=== PATIENT | male | born 1945 | race American Indian/Alaskan Native ===

== ENCOUNTER 2021-08-27 20:51 | Inpatient (IN) | payer MEDICARE ==
[2021-08-27] MEDS ORDERED: SODIUM CHLORIDE 0.9% 1000 ML 1,000 ML IV ONE (22:43)
--- NOTE | 2021-08-27 23:07 | XRay Report ---
CHEST 1 VIEW INDICATION / CLINICAL INFORMATION: Dyspnea. COMPARISON: None available. FINDINGS: SUPPORT DEVICES: None. HEART / MEDIASTINUM: Heart size is within normal limits. Mild ectasia of the thoracic aorta is demons trated. LUNGS / PLEURA: No significant pulmonary abnormality. BONES: Previous repair of the right humeral neck demonstrated. Osseous structures demonstrate no acut e findings. ADDITIONAL FINDINGS: No significant additional findings. IMPRESSION: 1. No active cardiopulmonary disease. Signer Name: Sukhjinder Hong II, MD Signed: 08/27/2021 11:02 PM Workstation Name: [id number]
[2021-08-27 23:38] LABS: Basophils % (Auto) 0.6 % (0.0-1.8); Eosinophils # (Auto) 0.1 K/mm3 (0.0-0.4); Eosinophils % (Auto) 1.6 % (0.0-4.3); Hematocrit 37.2 % (35.5-45.6); Hemoglobin 12.2 gm/dl (11.8-15.2); Lymphocytes # (Auto) 1.8 K/mm3 (1.2-5.4); Lymphocytes % (Auto) 35.3 % (13.4-35.0); Mean Corpuscular HGB Conc 33 % (32-34); Mean Corpuscular Volume 87 fl (84-94); Monocytes # (Auto) 0.6 K/mm3 (0.0-0.8); Monocytes % (Auto) 12.2 % (0.0-7.3); Platelet Count 170 K/mm3 (140-440); Red Blood Count 4.27 M/mm3 (3.65-5.03)
[2021-08-27 23:40] LABS: INR 0.91 (0.87-1.13)
[2021-08-27 23:43] LABS: Alanine Aminotransferase 23 units/L (7-56); Albumin 4.5 g/dL (3.9-5); BUN/Creatinine Ratio 22; Blood Urea Nitrogen 22 mg/dL (9-20); Calcium 9.3 mg/dL (8.4-10.2); Hemolysis Index 34
--- NOTE | 2021-08-28 01:26 | Cat Scan Report ---
CT HEAD WITHOUT CONTRAST INDICATION / CLINICAL INFORMATION: Altered Mental Status. TECHNIQUE: CT head was performed without administration of intravenous contrast. All CT scans at this location are performed using CT dose reduction for ALARA by means of automated exposure control. COMPARISON: None available. FINDINGS: CEREBRAL HEMISPHERES: Generalized atrophy and bilateral regions of periventricular white matter hypoa ttenuation compatible with microvascular ischemia are demonstrated. No midline shift. Basal cisterns patent. Bilateral lacunar infarctions of the basal ganglia and left thalamus. Additionally within the cortex and subcortical white matter left parietal lobe hypoattenuation is demonstrated that may refl ect subacute ischemia. Additional region of hypoattenuation within the anterior watershed of the left frontal lobe and posterior cortex of the left frontal lobe is present. Some regions of the parietal hyperattenuation suggests possible cortical laminar necrosis. Cerebral edema and/or underlying lesion is not entirely excluded. HEMORRHAGE: None. CEREBELLUM / BRAINSTEM: Remote infarction right cerebellar hemisphere. [id number] cerebellar at rophy. ORBITS: No significant abnormality. SOFT TISSUES: No significant abnormality. SKULL: No significant abnormality. PARANASAL SINUSES / MASTOID AIR CELLS: Normal as visualized. ADDITIONAL FINDINGS: None. IMPRESSION: 1. Areas of hypoattenuation within the left parietal region and anterior watershed left frontal lobe are present. Additional small focus of subcortical white matter hypoattenuation within the posterior left frontal lobe. No distinct mass effect. MRI prior to and following injury contrast is recommended for further evaluation as differential considerations include subacute infarction, metastatic diseas e not excluded. 2. Generalized atrophy and findings compatible with microvascular ischemia. 3. Bilateral lacunar infarctions within the basal ganglia as well as left thalamus. 4. Remote infarct ion of the right cerebral hemisphere. Signer Name: Sukhjinder Hong II, MD Signed: 08/28/2021 1:22 AM Workstation Name: [id number]
--- NOTE | 2021-08-28 05:46 | Emergency Department Report ---
<MARILIN BEVERLY Jewels - Last Filed: 08/28/21 14:21> ED Altered Mental Status HPI - General Chief Complaint: Altered Mental Status Stated Complaint: AMS Time Seen by Provider: 08/27/21 22:39 - Related Data Allergies Allergy/AdvReac Type Severity Reaction Status Date / Time Penicillins Allergy Rash Verified 08/27/21 22:58 - Lab Data Result diagrams: 08/27/21 22:57 08/27/21 22:57 - Medical Decision Making Case discussed with hospitalist Dr. Lees. Admission orders placed ED Disposition Clinical Impression: AMS (altered mental status), CVA (cerebral vascular accident) Disposition: ADMITTED INPATIENT Is pt being admited?: Yes Condition: Stable <ALDAIR KABA - Last Filed: 08/28/21 21:36> ED Altered Mental Status HPI - General PUI?: No Source: EMS Mode of arrival: Stretcher Limitations: Altered Mental Status - History of Present Illness Initial Comments: EMS reports they were called out for stroke. LKWT 1700 today. Pt is negative on stroke scale. Tremor to left extremity reported and noted. Pt reports this has been going on for months. Pt ambulatory with steady gait from EMS stretcher to room stretcher. Pt is aaox2 whitch is his baseline. PMHx TBI. Complaint: altered mental status, confusion -: Gradual, hour(s) Severity: moderate Associated Symptoms: denies: denies other symptoms, chest pain ED Review of Systems ROS: Stated complaint: AMS Other details as noted in HPI Comment: Unobtainable due to pts medical conditions Constitutional: denies: chills, fever Eyes: denies: eye pain, eye discharge, vision change ENT: denies: ear pain, throat pain Respiratory: denies: cough, shortness of breath, wheezing Cardiovascular: denies: chest pain, palpitations Endocrine: no symptoms reported Gastrointestinal: denies: abdominal pain, nausea, diarrhea Genitourinary: denies: urgency, dysuria Musculoskeletal: denies: back pain, joint swelling, arthralgia Skin: denies: rash, lesions Neurological: denies: headache, weakness, paresthesias Psychiatric: denies: anxiety, depression Hematological/Lymphatic: denies: easy bleeding, easy bruising ED Past Medical Hx - Past Medical History Previous Medical History?: Yes Hx Hypertension: Yes Hx Diabetes: Yes Hx GERD: Yes Additional medical history: TBI. Anemia. hyperlipidemia. cellulitis - Social History Smoking Status: Unknown if ever smoked ED Physical Exam - General Limitations: Altered Mental Status General appearance: other (confused ) - Head Head exam: Present: atraumatic, normocephalic - Eye Eye exam: Present: normal appearance - ENT ENT exam: Present: mucous membranes moist - Neck Neck exam: Present: normal inspection - Respiratory Respiratory exam: Present: normal lung sounds bilaterally. Absent: respiratory distress - Cardiovascular Cardiovascular Exam: Present: regular rate, normal rhythm. Absent: systolic murmur, diastolic murmur, rubs, gallop - GI/Abdominal GI/Abdominal exam: Present: soft, normal bowel sounds - Rectal Rectal exam: Present: deferred - Extremities Exam Extremities exam: Present: normal inspection - Back Exam Back exam: Present: normal inspection - Skin Skin exam: Present: warm, dry, intact, normal color. Absent: rash ED Course Vital Signs 08/27/21 08/27/21 08/27/21 22:46 22:48 23:01 Temperature 98.1 F Pulse Rate 84 86 Respiratory 15 15 17 Rate Blood Pressure 148/91 146/94 O2 Sat by Pulse 98 96 Oximetry 08/28/21 08/28/21 08/28/21 00:01 01:01 02:01 Temperature Pulse Rate 69 65 Respiratory 14 14 16 Rate Blood Pressure 112/72 149/83 O2 Sat by Pulse 98 97 Oximetry 08/28/21 08/28/21 08/28/21 03:01 04:01 05:01 Temperature Pulse Rate 59 L 59 L 56 L Respiratory 24 16 16 Rate Blood Pressure 127/95 137/75 137/75 O2 Sat by Pulse Oximetry 08/28/21 08/28/21 08/28/21 06:01 07:01 08:01 Temperature Pulse Rate 67 64 53 L Respiratory 18 16 17 Rate Blood Pressure 140/73 140/73 151/90 O2 Sat by Pulse Oximetry 08/28/21 08/28/21 08/28/21 09:01 09:51 10:01 Temperature Pulse Rate 53 L 56 L 60 Respiratory 15 13 24 Rate Blood Pressure 128/84 127/91 127/91 O2 Sat by Pulse Oximetry 08/28/21 08/28/21 10:11 10:21 Temperature Pulse Rate 58 L 62 Respiratory 14 15 Rate Blood Pressure 127/91 127/91 O2 Sat by Pulse Oximetry - Lab Data Result diagrams: 08/27/21 22:57 08/27/21 22:57 Lab Results 08/27/21 08/27/21 08/27/21 Range/Units 22:57 22:57 22:57 WBC 5.1 (4.5-11.0) K/mm3 RBC 4.27 (3.65-5.03) M/mm3 Hgb 12.2 (11.8-15.2) gm/dl Hct 37.2 (35.5-45.6) % MCV 87 (84-94) fl MCH 29 (28-32) pg MCHC 33 (32-34) % RDW 18.0 H (13.2-15.2) % Plt Count 170 (140-440) K/mm3 Lymph % (Auto) 35.3 H (13.4-35.0) % [place] % (Auto) 12.2 H (0.0-7.3) % Eos % (Auto) 1.6 (0.0-4.3) % Baso % (Auto) 0.6 (0.0-1.8) % Lymph # (Auto) 1.8 (1.2-5.4) K/mm3 [place] # (Auto) 0.6 (0.0-0.8) K/mm3 Eos # (Auto) 0.1 (0.0-0.4) K/mm3 Baso # (Auto) 0.0 (0.0-0.1) K/mm3 Seg Neutrophils % 50.3 (40.0-70.0) % Seg Neutrophils # 2.5 (1.8-7.7) K/mm3 PT 13.2 (12.2-14.9) Sec. INR 0.91 (0.87-1.13) Sodium 142 (137-145) mmol/L Potassium 4.5 (3.6-5.0) mmol/L Chloride 104.0 (98-107) mmol/L Carbon Dioxide 27 (22-30) mmol/L Anion Gap 16 mmol/L BUN 22 H (9-20) mg/dL Creatinine 1.0 (0.8-1.3) mg/dL Estimated GFR > 60 ml/min BUN/Creatinine Ratio 22 % Glucose 207 H (75-100) mg/dL Lactic Acid (0.7-2.0) mmol/L Calcium 9.3 (8.4-10.2) mg/dL Total Bilirubin 0.20 (0.1-1.2) mg/dL AST 17 (5-40) units/L ALT 23 (7-56) units/L Alkaline Phosphatase 63 (35-129) units/L Ammonia (25-60) umol/L Total Creatine Kinase 68 (55-170) units/L Troponin T < 0.010 (0.00-0.029) ng/mL Total Protein 8.2 (6.3-8.2) g/dL Albumin 4.5 (3.9-5) g/dL Albumin/Globulin Ratio 1.2 % Salicylates (2.8-20.0) mg/dL Acetaminophen (10.0-30.0) ug/mL Plasma/Serum Alcohol (0-0.07) % 08/27/21 08/27/21 08/27/21 Range/Units 22:57 22:57 22:57 WBC (4.5-11.0) K/mm3 RBC (3.65-5.03) M/mm3 Hgb (11.8-15.2) gm/dl Hct (35.5-45.6) % MCV (84-94) fl MCH (28-32) pg MCHC (32-34) % RDW (13.2-15.2) % Plt Count (140-440) K/mm3 Lymph % (Auto) (13.4-35.0) % [place] % (Auto) (0.0-7.3) % Eos % (Auto) (0.0-4.3) % Baso % (Auto) (0.0-1.8) % Lymph # (Auto) (1.2-5.4) K/mm3 [place] # (Auto) (0.0-0.8) K/mm3 Eos # (Auto) (0.0-0.4) K/mm3 Baso # (Auto) (0.0-0.1) K/mm3 Seg Neutrophils % (40.0-70.0) % Seg Neutrophils # (1.8-7.7) K/mm3 PT (12.2-14.9) Sec. INR (0.87-1.13) Sodium (137-145) mmol/L Potassium (3.6-5.0) mmol/L Chloride (98-107) mmol/L Carbon Dioxide (22-30) mmol/L Anion Gap mmol/L BUN (9-20) mg/dL Creatinine (0.8-1.3) mg/dL Estimated GFR ml/min BUN/Creatinine Ratio % Glucose (75-100) mg/dL Lactic Acid 2.00 (0.7-2.0) mmol/L Calcium (8.4-10.2) mg/dL Total Bilirubin (0.1-1.2) mg/dL AST (5-40) units/L ALT (7-56) units/L Alkaline Phosphatase (35-129) units/L Ammonia 10.0 L (25-60) umol/L Total Creatine Kinase (55-170) units/L Troponin T (0.00-0.029) ng/mL Total Protein (6.3-8.2) g/dL Albumin (3.9-5) g/dL Albumin/Globulin Ratio % Salicylates < 0.3 L (2.8-20.0) mg/dL Acetaminophen (10.0-30.0) ug/mL Plasma/Serum Alcohol (0-0.07) % 08/27/21 08/27/21 08/28/21 Range/Units 22:57 22:57 00:34 WBC (4.5-11.0) K/mm3 RBC (3.65-5.03) M/mm3 Hgb (11.8-15.2) gm/dl Hct (35.5-45.6) % MCV (84-94) fl MCH (28-32) pg MCHC (32-34) % RDW (13.2-15.2) % Plt Count (140-440) K/mm3 Lymph % (Auto) (13.4-35.0) % [place] % (Auto) (0.0-7.3) % Eos % (Auto) (0.0-4.3) % Baso % (Auto) (0.0-1.8) % Lymph # (Auto) (1.2-5.4) K/mm3 [place] # (Auto) (0.0-0.8) K/mm3 Eos # (Auto) (0.0-0.4) K/mm3 Baso # (Auto) (0.0-0.1) K/mm3 Seg Neutrophils % (40.0-70.0) % Seg Neutrophils # (1.8-7.7) K/mm3 PT (12.2-14.9) Sec. INR (0.87-1.13) Sodium (137-145) mmol/L Potassium (3.6-5.0) mmol/L Chloride (98-107) mmol/L Carbon Dioxide (22-30) mmol/L Anion Gap mmol/L BUN (9-20) mg/dL Creatinine (0.8-1.3) mg/dL Estimated GFR ml/min BUN/Creatinine Ratio % Glucose (75-100) mg/dL Lactic Acid 1.90 (0.7-2.0) mmol/L Calcium (8.4-10.2) mg/dL Total Bilirubin (0.1-1.2) mg/dL AST (5-40) units/L ALT (7-56) units/L Alkaline Phosphatase (35-129) units/L Ammonia (25-60) umol/L Total Creatine Kinase (55-170) units/L Troponin T (0.00-0.029) ng/mL Total Protein (6.3-8.2) g/dL Albumin (3.9-5) g/dL Albumin/Globulin Ratio % Salicylates (2.8-20.0) mg/dL Acetaminophen 5.0 L (10.0-30.0) ug/mL Plasma/Serum Alcohol < 0.01 (0-0.07) % - Radiology Data Radiology results: report reviewed, image reviewed - Medical Decision Making work up showed possible subacute infarctvs mets , vss no distress , otherwise unremarkable , pt need to be admitted for AMS and stroke work up Critical care attestation.: If time is entered above; I have spent that time in minutes in the direct care of this critically ill patient, excluding procedure time. ED Disposition Is pt being admited?: Yes Does the pt Need Aspirin: No
[2021-08-28] MEDS ORDERED: ONDANSETRON 4 MG/2 ML INJ IV PRN (07:38)
[2021-08-28] MEDS ORDERED: MORPHINE 2 MG/1 ML INJ IV PRN (07:38)
--- NOTE | 2021-08-28 09:50 | History and Physical Report ---
History of Present Illness Date of examination: 08/28/21 Date of admission: 08/28/21 07:38 Chief complaint: Altered mental status History of present illness: This is a 76 y/o male with no known PMH presented to ER by EMS with AMS. No family member are present at the bedside. Patient is alert and awake but does not know why he is here. He cannot tell who he lives with and what medications he takes at home. He stated that he is very weak to do anything. He initially was under stroke alert but then that was discontinued as he has no focal deficit. CT head in the ER showed Areas of hypoattenuation within the left parietal region and anterior watershed left frontal lobe, Generalized atrophy and findings compatible with microvascular ischemia, Bilateral lacunar infarctions within the basal ganglia as well as left thalamus and Remote infarction of the right cerebral hemisphere. CXR no infiltrates. Lab unremarkable. Patient being admitted for neuro eval and obsevation. Past medical History: unknown Past surgical History: Denies any Social History: denies any smoking, drinking and elicit drug abuse. Family History: unknown Review of System: limited b/o confusion Constitutional: no fever, no chills, Ears, eyes, nose, mouth and throat: no nasal congestion, no nasal discharge, no sinus pressure, no red eye. Neck: No neck pain or rigidity. Cardiovascular: No chest pain, no orthopnea, no palpitations, no leg swelling Respiratory: No shortness of breath, no cough, no congestion, no wheezing Gastrointestinal: no abdominal pain, no nausea, no vomiting Genitourinary : no dysuria, no hematuria Musculoskeletal: no joint swelling or muscle ache Integumentary: no rash, no pruritis Neurological: no parathesias, no numbness, no tingling Endocrine: no polyuria or polydipsia Hematologic/Lymphatic: no gland swelling Allergic/Immunologic: no urticaria, no angioedema. Medications and Allergies Allergies Allergy/AdvReac Type Severity Reaction Status Date / Time Penicillins Allergy Rash Verified 08/27/21 22:58 Home Medications Medication Instructions Recorded Confirmed Last Taken Type Aspirin EC [Ecotrin] 325 mg PO QDAY #21 tablet 08/30/21 Unknown Rx Aspirin [Aspirin BABY CHEW TAB] 81 mg PO QDAY #30 tab.chew 08/30/21 Unknown Rx AtorvaSTATin [Lipitor] 40 mg PO QHS #30 tab 08/30/21 Unknown Rx Active Meds: Active Medications Acetaminophen (Acetaminophen 325 Mg Tab) 650 mg PO Q4H PRN PRN Reason: Pain MILD(1-3)/Fever >100.5/SÁNCHEZ Aspirin (Aspirin Ec 325 Mg Tab) 325 mg PO QDAY KENZIE Morphine Sulfate (Morphine 2 Mg/1 Ml Inj) 2 mg IV Q4H PRN PRN Reason: Pain, Moderate (4-6) Ondansetron HCl (Ondansetron 4 Mg/2 Ml Inj) 4 mg IV Q8H PRN PRN Reason: Nausea And Vomiting Sodium Chloride (Sodium Chloride 0.9% 10 Ml Flush Syringe) 10 ml IV BID KENZIE Sodium Chloride (Sodium Chloride 0.9% 10 Ml Flush Syringe) 10 ml IV PRN PRN PRN Reason: LINE FLUSH Exam - Physical Exam Narrative exam: GENERAL: well-developed and well-nourished elderly WM lying on bed appeared to be in no discomfort. HEENT: Normocephalic. Atraumatic. No conjunctival congestion or icterus. Patient has moist mucous membranes. NECK: Supple. Trachea midline. CHEST/LUNGS: Clear to auscultated bilaterally, breathing nonlabored. No wheezes crackles or rhonchi. HEART/CARDIOVASCULAR: Regular in rate and rhythm. S1 and S2 positive. ABDOMEN: Abdomen is soft, nontender. Patient has normal bowel sounds. SKIN: There is no rash. Warm and dry. NEURO: No focal motor deficit. Follows command. alert but confused MUSCULOSKELETAL: No joint effusion or tenderness. EXTRIMITY: No edema, no cyanosis or clubbing. PSYCH: Cooperative. - Constitutional Vitals: Temp Pulse Resp BP Pulse Ox 98.1 F 67 18 140/73 97 08/27/21 22:48 08/28/21 06:01 08/28/21 06:01 08/28/21 06:01 08/28/21 01:01 HEART Score - HEART Score Troponin: Troponin T < 0.010 ng/mL (0.00-0.029) 08/27/21 22:57 Results - Labs CBC & Chem 7: 08/30/21 04:21 08/30/21 04:21 Labs: Abnormal lab results 08/27/21 08/27/21 08/27/21 Range/Units 22:57 22:57 22:57 RDW 18.0 H (13.2-15.2) % Lymph % (Auto) 35.3 H (13.4-35.0) % [place] % (Auto) 12.2 H (0.0-7.3) % BUN 22 H (9-20) mg/dL Glucose 207 H (75-100) mg/dL Ammonia 10.0 L (25-60) umol/L Salicylates (2.8-20.0) mg/dL Acetaminophen (10.0-30.0) ug/mL 08/27/21 08/27/21 Range/Units 22:57 22:57 RDW (13.2-15.2) % Lymph % (Auto) (13.4-35.0) % [place] % (Auto) (0.0-7.3) % BUN (9-20) mg/dL Glucose (75-100) mg/dL Ammonia (25-60) umol/L Salicylates < 0.3 L (2.8-20.0) mg/dL Acetaminophen 5.0 L (10.0-30.0) ug/mL Assessment and Plan -- Acute metabolic encephalopathy, cannot rule out underlying vascular dementia -- Abnormal CT head findings: possible subacute with b/l old CVAs -- Physical debility with generalized weakness -- Mild dehydration Plan: will admit to tele, will do frequent neuro eval, MRI brain, aspirin, statin will start on cardiac diet, monitor BP need more social and medical history PT/OT eval, supportive care lovenox for DVT Px Full code
[2021-08-28] MEDS: ASPIRIN EC 325 MG TAB PO SCH (10:06)
--- NOTE | 2021-08-28 16:21 | Consultation ---
History of Present Illness Consult date: 08/28/21 Reason for Consult: Confusion History of present illness: Admiited with Confusion per patient some improvement , no falls. Overall no issues with Headaches and Dizziness . Medications and Allergies Allergies Allergy/AdvReac Type Severity Reaction Status Date / Time Penicillins Allergy Rash Verified 08/27/21 22:58 Active Meds: Active Medications Acetaminophen (Acetaminophen 325 Mg Tab) 650 mg PO Q4H PRN PRN Reason: Pain MILD(1-3)/Fever >100.5/SÁNCHEZ Aspirin (Aspirin Ec 325 Mg Tab) 325 mg PO QDAY KENZIE Morphine Sulfate (Morphine 2 Mg/1 Ml Inj) 2 mg IV Q4H PRN PRN Reason: Pain, Moderate (4-6) Ondansetron HCl (Ondansetron 4 Mg/2 Ml Inj) 4 mg IV Q8H PRN PRN Reason: Nausea And Vomiting Sodium Chloride (Sodium Chloride 0.9% 10 Ml Flush Syringe) 10 ml IV BID KENZIE Sodium Chloride (Sodium Chloride 0.9% 10 Ml Flush Syringe) 10 ml IV PRN PRN PRN Reason: LINE FLUSH Physical Examination - Vital Signs Vital Signs: Vital Signs Resp 15 08/27/21 22:46 - Physical Exam Narrative exam: 1. The patient is alert , moves all 4 extremities, Gait is not tested - there is spasticity on the left upper extremity Results - Laboratory Findings CBC and BMP: 08/27/21 22:57 08/27/21 22:57 Abnormal Lab Findings: Abnormal Labs 08/27/21 08/27/21 08/27/21 22:57 22:57 22:57 RDW 18.0 H Lymph % (Auto) 35.3 H [place] % (Auto) 12.2 H BUN 22 H Glucose 207 H POC Glucose Ammonia 10.0 L Salicylates Acetaminophen 08/27/21 08/27/21 08/28/21 22:57 22:57 12:31 RDW Lymph % (Auto) [place] % (Auto) BUN Glucose POC Glucose 115 H Ammonia Salicylates < 0.3 L Acetaminophen 5.0 L Assessment and Plan 1. Improving Encephalopathy -reviewed CT Brain. 2. Multifactorial Issues with Encephalopathy . 3. If no clinical improvement in next 24 hours consider - MRI Brain . 4. No changes in medications have been recommended at this visit . Dr. Chino
--- NOTE | 2021-08-29 14:18 | Magnetic Resonance Report ---
MRI BRAIN 08/29/2021 INDICATION / CLINICAL INFORMATION: AMS, WEAKNESS. TECHNIQUE: Multiplanar, multisequence MR images of the brain were obtained. COMPARISON: CT brain 08/27/2021 FINDINGS: BRAIN / INTRACRANIAL CONTENTS: Unenhanced and enhanced MR images of the brain were obtained. There are confluent areas of cortical acute ischemic injury involving the left frontal and parietal c ortex, consistent with territory of territory of branches of the left middle cerebral artery. This co rresponds to the area of hypoattenuation noted on the prior CT. There is no evidence of hemorrhage or underlying mass. Underlying prominent diffuse cerebral atrophy is present. Extensive chronic diffuse white matter T2 w eighted signal change is also noted in the cerebral hemispheric white matter and brainstem. There is evidence of old cerebellar ischemic injury in the right cerebellar hemisphere. On the postcontrast images, there is some evidence of vascular enhancement in the areas of ischemic i njury, which can be associated with slow flow in areas of acute ischemia. There is no evidence of par enchymal enhancement at this time. There are no abnormal extra-axial fluid collections. EXTRACRANIAL: Unremarkable CRANIOCERVICAL JUNCTION: No significant abnormality. VASCULAR FLOW-VOIDS: No significant abnormality. IMPRESSION: 1. Acute partial left MCA territory cortical ischemic injury. No evidence of hemorrhage. 2. Extensive chronic and age-related changes. 3. Old right cerebellar infarct. Signer Name: Shawn Frye MD Signed: 08/29/2021 2:13 PM Workstation Name: [id number]
[2021-08-29] MEDS: ASPIRIN EC 325 MG TAB PO SCH (14:32)
[2021-08-29] MEDS: ACETAMINOPHEN 325 MG TAB PO PRN (17:45)
[2021-08-29] MEDS: ENOXAPARIN 40 MG/0.4 ML INJ SUB-Q SCH (21:20)
--- NOTE | 2021-08-30 01:47 | Progress Note ---
Assessment and Plan Assessment and Plan -- Acute metabolic encephalopathy, cannot rule out underlying vascular dementia --Acute CVA---right-sided paralysis--weakness--MRI brain -- Abnormal CT head findings: possible subacute with b/l old CVAs -- Physical debility with generalized weakness --Mild dehydration Plan: Neurology consult appreciated MRI pending PT and OT Patient more alert and oriented Check echocardiogram and MR Subjective Date of service: 08/29/21 Principal diagnosis: Acute CVA Interval history: This is a 76 y/o male with no known PMH presented to ER by EMS with AMS. No family member are present at the bedside. Patient is alert and awake but does not know why he is here. He cannot tell who he lives with and what medications he takes at home. He stated that he is very weak to do ant thing. He initially was under stroke alert but then that was discontinued as he has no focal deficit. CT head in the ER showed Areas of hypoattenuation within the left parietal region and anterior watershed left frontal lobe, Generalized atrophy and findings compatible with microvascular ischemia, Bilateral lacunar infarctions within the basal ganglia as well as left thalamus and Remote inf arction of the right cerebral hemisphere. CXR no infiltrates. Lab unremarkable. Patient being admitted for neuro eval and obsevation. 05/01/21 Slight weakness on the right side Neuro consult appreciated MRI pending Objective - Constitutional Vitals: Vital Signs - 12hr 08/29/21 08/29/21 08/29/21 18:45 19:30 20:27 Temperature 97.6 F Pulse Rate 75 75 Respiratory 18 16 Rate Blood Pressure 117/85 O2 Sat by Pulse 96 Oximetry 08/29/21 08/29/21 20:30 22:55 Temperature 98.6 F Pulse Rate 61 Respiratory 16 Rate Blood Pressure 151/91 O2 Sat by Pulse 96 96 Oximetry General appearance: Present: no acute distress, well-nourished - EENT Eyes: PERRL, EOM intact ENT: hearing intact, clear oral mucosa Ears: bilateral: normal - Neck Neck: supple, normal ROM - Respiratory Respiratory effort: normal Respiratory: bilateral: CTA - Breasts Breasts: normal - Cardiovascular Heart rate: 78 Rhythm: regular Heart Sounds: Present: S1 & S2. Absent: gallop, rub Extremities: pulses intact, No edema, normal color, Full ROM - Gastrointestinal General gastrointestinal: Present: soft, non-tender, non-distended, normal bowel sounds - Genitourinary Male genitourinary: normal - Integumentary Integumentary: clear, warm, dry - Musculoskeletal Musculoskeletal: strength equal bilaterally, right sided weakness, generalized weakness - Neurologic Neurologic: focal deficits (Right hemiparesis, able to walk), moves all ex tremities - Psychiatric Psychiatric: memory intact, appropriate mood/affect, intact judgment & insight - Labs CBC & Chem 7: 08/27/21 22:57 08/27/21 22:57 HEART Score - HEART Score Troponin: Troponin T < 0.010 ng/mL (0.00-0.029) 08/27/21 22:57
[2021-08-30 05:18] LABS: Eosinophils # (Auto) 0.2 K/mm3 (0.0-0.4); Eosinophils % (Auto) 2.9 % (0.0-4.3); Hemoglobin 12.2 gm/dl (11.8-15.2); Lymphocytes # (Auto) 2.2 K/mm3 (1.2-5.4); Mean Corpuscular HGB Conc 32 % (32-34); Mean Corpuscular Volume 87 fl (84-94); Monocytes # (Auto) 0.7 K/mm3 (0.0-0.8); Monocytes % (Auto) 12.3 % (0.0-7.3); Platelet Count 143 K/mm3 (140-440); Red Blood Count 4.36 M/mm3 (3.65-5.03); Red Cell Distribution Width 17.3 % (13.2-15.2)
[2021-08-30 05:38] LABS: Alanine Aminotransferase 27 units/L (7-56); Albumin 3.9 g/dL (3.9-5); BUN/Creatinine Ratio 33; Blood Urea Nitrogen 26 mg/dL (9-20); Calcium 8.9 mg/dL (8.4-10.2); Hemolysis Index 27
--- NOTE | 2021-08-30 08:42 | Discharge Summary ---
Providers - Providers Date of Admission: 08/28/21 07:38 Date of discharge: 08/30/21 Attending physician: ANNETTE SCOTT MD 08/28/21 09:24 Consult to Physician [CONS] Routine Comment: Consulting Provider: MARC CLINTON Physician Instructions: Reason For Exam: AMS 08/28/21 09:25 Physical Therapy Evaluation and Treat [CONS] Routine Comment: Reason For Exam: Debility Speech Therapy Evaluation and Treat [CONS] Routine Reason For Exam: aspiration Primary care physician: WILLIAN CEJA Hospitalization Reason for admission: Acute ischemic CVA, acute metabolic encephalopathy Condition: Stable Pertinent studies: Reviewed. Procedures: None. Hospital course: Patient is a 76-year-old male with no known past medical history who presented to the ED via EMS for acute metabolic encephalopathy. On presentation, the patient was hemodynamically stable; however, the patient could not answer questions regarding to where he lives or what medications he takes at home. Initially the patient was considered a stroke alert, but this was discontinued as he had no focal deficits. CT head noncontrast revealed "areas of hypoattenuation within the left parietal region and anterior watershed left frontal lobes are present. Additional small focus of subcortical white matter hypoattenuation within the posterior left frontal lobe. No distinct mass- effect. 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 Neurology was consulted for further management. Patient was evaluated by physical therapy who recommended home health with PT. The patient will be returning back to his [facility] with physical therapy assistance. The patient is medically cleared for discharge. Disposition: 01 HOME / SELF CARE / HOMELESS Final Discharge Diagnosis (Prints w/discharge instructions): Acute ischemic CVA, acute metabolic encephalopathy, mild dehydration Time spent for discharge: 45 min Core Measure Documentation - Palliative Care Palliative Care/ Comfort Measures: Not Applicable - Core Measures Any of the following diagnoses?: stroke - Stroke Discharge Requirements Statin for LDL = or >70 mg/dl on DC: Yes Anticoag for atrial fib/atrial flutter: Not Applicable Reason for no anticoag for AF/F on DC: Not Indicated Antithrombotic for ischemic stroke: No Reason for no antithrombotic on DC: Not Indicated Exam - Constitutional Vitals: Temp Pulse Resp BP Pulse Ox 97.6 F 60 16 143/87 98 08/30/21 04:39 08/30/21 04:39 08/30/21 04:39 08/30/21 04:39 08/30/21 04:39 General appearance: Present: no acute distress, well-nourished - EENT Eyes: Present: PERRL, EOM intact ENT: hearing intact, clear oral mucosa, edentulous - Neck Neck: Present: supple, normal ROM - Respiratory Respiratory effort: normal Respiratory: bilateral: CTA - Cardiovascular Rhythm: regular Heart Sounds: Present: S1 & S2 - Extremities Extremities: no ischemia, pulses intact, pulses symmetrical, No edema, normal temperature, normal color Peripheral Pulses: within normal limits - Abdominal General gastrointestinal: Present: soft, non-tender, non-distended, normal bowel sounds Male genitourinary: Present: deferred - Integumentary Integumentary: Present: clear, warm, dry - Musculoskeletal Musculoskeletal: right sided weakness - Psychiatric Psychiatric: appropriate mood/affect, cooperative - Neurologic Neurologic: CNII-XII intact, moves all extremities - Allied Health Allied health notes reviewed: nursing Plan Activity: advance as tolerated Diet: low cholesterol Additional Instructions: Patient is a 76-year-old male with no known past medical history who presented to the ED via EMS for acute metabolic encephalopathy. On presentation, the patient was hemodynamically stable; however, the patient could not answer questions regarding to where he lives or what medications he takes at home. Initially the patient was considered a stroke alert, but this was discontinued as he had no focal deficits. CT head noncontrast revealed "areas of hypoattenuation within the left parietal region and anterior watershed left frontal lobes are present. Additional small focus of subcortical white matter hypoattenuation within the posterior left frontal lobe. No distinct mass-effect. 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 Neurology was consulted for further management. Patient was evaluated by physical therapy who recommended home health with PT. The patient will be [facility] his [facility] with physical therapy assistance. The patient is medically cleared for discharge. Care Plan Goals: Patient is medically clear for discharge. Assessment: Patient is a 76-year-old male with no known past medical history who presented to the ED via EMS for acute metabolic encephalopathy. On presentation, the patient was hemodynamically stable; however, the patient could not answer questions regarding to where he lives or what medications he takes at home. Initially the patient was considered a stroke alert, but this was discontinued as he had no focal deficits. CT head noncontrast revealed "areas of hypoattenuation within the left parietal region and anterior watershed left frontal lobes are present. Additional small focus of subcortical white matter hypoattenuation within the posterior left frontal lobe. No distinct mass- effect. 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 Neurology was consulted for further management. Patient was evaluated by physical therapy who recommended home health with PT. The patient will be returning [facility] to his [facility] with physical therapy assistance. The patient is medically cleared for discharge. Follow up with: WILLIAN CEJA MD [Primary Care Provider] - 3-5 Days ANIKA HAN MD [Staff Physician] - 14 Days Prescriptions: AtorvaSTATin [Lipitor] 40 mg PO QHS #30 tab Aspirin [Aspirin BABY CHEW TAB] 81 mg PO QDAY #30 tab.chew Aspirin EC [Ecotrin] 325 mg PO QDAY #21 tablet
[2021-08-30 10:18] LABS: Chol/HDL Ratio 4.74 %
[2021-08-30] MEDS: ASPIRIN EC 325 MG TAB PO SCH (10:28)
[2021-08-30] MEDS: ENOXAPARIN 40 MG/0.4 ML INJ SUB-Q SCH (22:32)
[2021-08-31] MEDS: ACETAMINOPHEN 325 MG TAB PO PRN (04:00)
[2021-08-31 05:07] VITALS: BP 133/88
== END 2021-08-31 05:15 | disposition home health service (06) | DRG 64 ==
LOC: ED 20:51 → 4A 08-28 07:38
PROVIDERS: ADMIT Internal Medicine; ATTEND Student in an Organized Health Care Education/Training Program
DX: I63.9 Cerebral infarction, unspecified (principal); G93.41 Metabolic encephalopathy; G81.91 Hemiplegia, unspecified affecting right dominant side; E86.0 Dehydration; R53.81 Other malaise; Z79.82 Long term (current) use of aspirin; Z88.0 Allergy status to penicillin
CPT/HCPCS: 36415; 70450; 70553; 71045; 80053; 80061; 80320; 82140; 82550; 82962; 83036; 84484; 85025; 85610; 93306; G0378; A9575; C8929; G0480; J1650; J2270; J7030